=== PATIENT | female | born 1990 | race African-American/Black ===

== ENCOUNTER 2017-07-31 12:53 | Emergency (ER) | payer OTHER ==
[~2017-07-31] VITALS: Ht 167.6 cm; Wt 7.7 kg
[2017-07-31 14:03] LABS: URINE BILIRUBIN NEGATIVE (Negative); URINE BLOOD 3+ (Negative); URINE CLARITY CLEAR; URINE COLOR YELLOW; URINE GLUCOSE-RANDOM* NEGATIVE (Negative); URINE KETONES NEGATIVE (Negative); URINE LEUKOCYTES NEGATIVE (Negative); URINE NITRITE POSITIVE (Negative); URINE PROTEIN (DIPSTICK) NEGATIVE (Negative); URINE SPECIFIC GRAVITY >= 1.030 (1.005-1.035)
[2017-07-31] MEDS ORDERED: VITAMINC500 PO (14:06)
[2017-07-31] MEDS ORDERED: VITAMIN B-12500 MCG (14:07)
[2017-07-31] MEDS ORDERED: WOMEN'S DAILY1 EACH PO (14:07)
[2017-07-31 14:11] LABS: BACTERIA >30 Many /HPF (None Seen); CASTS None Seen /LPF (None Seen); CRYSTALS None Seen /LPF (None Seen); SQUAMOUS >10 Many /LPF (0-3); URINE RBC 0-2 Rare /HPF (0-2); URINE WBC 0-5 Rare /HPF (0-5)
[2017-07-31 14:24] LABS: ABSOLUTE NEUTROPHILS 1.7 thou/uL (1.4-8.2); BASOPHILS 0.7 % (0.0-2.0); EOSINOPHILS 2.9 % (0.0-3.0); HEMATOCRIT 35.6 % (37.0-47.0); HEMOGLOBIN 11.5 gm/dL (12.0-15.0); LYMPHOCYTES 30.3 % (24.0-44.0); MCH 26.4 pg (26.0-34.0); MCHC 32.4 g/dL (28.0-37.0); MCV 81.5 fL (80.0-100.0); PLATELET COUNT 179 thou/uL (150-400); POLYS 54.1 % (36.0-66.0); RBC 4.36 mil/uL (4.20-5.00); RDW 13.8 % (10.5-14.5); WBC 3.2 thou/uL (4.0-11.0)
[2017-07-31 14:30] LABS: CALCIUM 8.4 mg/dL (8.5-10.1); CREATININE 0.8 mg/dL (0.6-1.0); POTASSIUM 3.5 mmol/L (3.5-5.1)
[2017-07-31] MEDS ORDERED: KEFLEX500 M1 PO (15:37)
[2017-07-31] MEDS ORDERED: IBUPROFEN 600600 M1 PO (15:37)
[2017-07-31] MEDS ORDERED: ULTRAM 50MG TAB50 MG PO (15:38)
[2017-07-31 15:52] VITALS: BP 103/67
== END 2017-07-31 15:53 | disposition home or self-care (01) ==
LOC: ER 12:53
PROVIDERS: Nurse Practitioner
DX: N39.0 Urinary tract infection, site not specified (principal); M79.1 Myalgia; Z88.6 Allergy status to analgesic agent; Z88.8 Allergy status to other drugs, medicaments and biological substances